=== PATIENT | male | born 1980 | race Caucasian/White ===

== ENCOUNTER 2021-06-02 21:15 | Emergency (ER) | payer MEDICAID ==
[~2021-06-02] VITALS: Ht 175.3 cm; Wt 77.3 kg
[2021-06-02] MEDS ORDERED: HYDROcodone/acetaminophen 5mg/325mg tablet PO ONE (23:35)
[2021-06-03 00:52] LABS: BASOPHILS # (AUTO) 0.1 X10'3 (0-0.2); BASOPHILS % (AUTO) 0.9 % (0-1); EOSINOPHILS % (AUTO) 0.3 % (0-6); HEMATOCRIT 49.9 % (42.0-52.0); LYMPHOCYTES # (AUTO) 1.8 X10'3 (1.1-4.8); LYMPHOCYTES % (AUTO) 18.6 % (21-51); MEAN CORPUSCULAR HGB CONC 34.1 g/dL (33.0-36.5); MEAN CORPUSCULAR VOLUME 93.7 FL (78-98); MEAN PLATELET VOLUME 8.3 FL (7.4-10.4); MONOCYTES # (AUTO) 0.9 X10'3 (0-0.9); MONOCYTES % (AUTO) 8.9 % (2-12); NEUTROPHILS % (AUTO) 71.3 % (42-75); PLATELET COUNT 192 X10'3 (140-440); RED BLOOD COUNT 5.32 X10'6 (4.70-6.10); WHITE BLOOD COUNT 9.9 X10'3 (4.5-11.0)
[2021-06-03 01:17] LABS: ALANINE AMINOTRANSFERASE 65 U/L (12-78); ALBUMIN 3.2 G/DL (3.4-5.0); ALBUMIN/GLOBULIN RATIO 0.9 (1.1-1.5); ALKALINE PHOSPHATASE 123 IU/L (46-116); AMYLASE 39 U/L (25-115); ANION GAP 12 (8-16); ASPARTATE AMINO TRANSFERASE 58 U/L (10-37); BILIRUBIN,DIRECT 0.7 MG/DL (0-0.3); BILIRUBIN,TOTAL 1.8 MG/DL (0.1-1.0); BLOOD UREA NITROGEN 19 MG/DL (7-18); BUN/CREATININE RATIO 14.6 (5.4-32.0); CALCIUM 10.4 MG/DL (8.5-10.1); CHLORIDE 102 MMOL/L (99-107); GLUCOSE 98 MG/DL (70-104); LIPASE 124 U/L (73-393); POTASSIUM 4.2 MMOL/L (3.5-5.1); SODIUM 141 MMOL/L (135-145); TOTAL CARBON DIOXIDE 27.1 MMOL/L (24-32); TOTAL PROTEIN 6.6 G/DL (6.4-8.2); eGFR 61 ML/MIN
[2021-06-03 03:29] VITALS: BP 158/122
[2021-06-03] MEDS ORDERED: HYDR-3965 PO (03:46)
[2021-06-03 04:26] LABS: CLARITY,URINE CLEAR (Clear); COLOR,URINE YELLOW (Yellow); GLUCOSE, URINE NEGATIVE (Neg); KETONES,URINE NEGATIVE (Neg); LEUKOCYTE ESTERASE ,URINE NEGATIVE (Neg); NITRITES, URINE NEGATIVE (Neg); OCCULT BLOOD,URINE NEGATIVE (Neg); PROTEIN,URINE NEGATIVE (Neg); UA COLLECTION TYPE VOIDED; UROBILINOGEN,URINE 0.2 E.U/dL (0.2-1.0)
[2021-06-04] MEDS ORDERED: NO HOME MEDS (13:43)
== END 2021-06-03 04:17 | disposition home or self-care (01) ==
LOC: ER 21:16
DX: R10.84 Generalized abdominal pain (principal)
CPT/HCPCS: 36415; 76700; 80048; 80076; 81003; 82150; 83690; 85025; 99284

== ENCOUNTER 2021-06-04 04:35 | Inpatient (IN) | payer MEDICAID ==
[~2021-06-04] VITALS: Ht 175.3 cm; Wt 77.3 kg
[~2021-06-04 04:35] MED LIST: HYDR-3965 PO
[2021-06-04] MEDS ORDERED: normal saline 1000ml 1,000 ML IV ONE ×2 (04:45→05:00)
[2021-06-04 05:11] LABS: BASOPHILS # (AUTO) 0.1 X10'3 (0-0.2); BASOPHILS % (AUTO) 0.8 % (0-1); EOSINOPHILS % (AUTO) 0.4 % (0-6); HEMATOCRIT 47.3 % (42.0-52.0); HEMOGLOBIN 16.2 g/dl (14.0-17.9); LYMPHOCYTES # (AUTO) 0.8 X10'3 (1.1-4.8); LYMPHOCYTES % (AUTO) 9.5 % (21-51); MEAN CORPUSCULAR HEMOGLOBIN 32.2 PG (27.0-31.0); MEAN CORPUSCULAR HGB CONC 34.3 g/dL (33.0-36.5); MEAN CORPUSCULAR VOLUME 93.8 FL (78-98); MEAN PLATELET VOLUME 8.5 FL (7.4-10.4); MONOCYTES # (AUTO) 1.2 X10'3 (0-0.9); MONOCYTES % (AUTO) 13.8 % (2-12); NEUTROPHILS # (AUTO) 6.4 X10'3 (1.8-7.7); NEUTROPHILS % (AUTO) 75.5 % (42-75); PLATELET COUNT 153 X10'3 (140-440); RED BLOOD COUNT 5.04 X10'6 (4.70-6.10); RED CELL DISTRIBUTION WIDTH 16.5 % (11.5-14.5); WHITE BLOOD COUNT 8.4 X10'3 (4.5-11.0)
[2021-06-04 05:22] LABS: ALANINE AMINOTRANSFERASE 65 U/L (12-78); ALBUMIN/GLOBULIN RATIO 0.9 (1.1-1.5); ALKALINE PHOSPHATASE 133 IU/L (46-116); ANION GAP 11 (8-16); ASPARTATE AMINO TRANSFERASE 66 U/L (10-37); BLOOD UREA NITROGEN 21 MG/DL (7-18); BUN/CREATININE RATIO 14.3 (5.4-32.0); CALCIUM 8.6 MG/DL (8.5-10.1); CHLORIDE 98 MMOL/L (99-107); CREATININE 1.47 MG/DL (0.60-1.10); GLUCOSE 119 MG/DL (70-104); SODIUM 133 MMOL/L (135-145); TOTAL CARBON DIOXIDE 23.6 MMOL/L (24-32); TOTAL PROTEIN 6.3 G/DL (6.4-8.2); eGFR 53 ML/MIN
[2021-06-04 05:25] LABS: BILIRUBIN,DIRECT 0.4 MG/DL (0-0.3); LIPASE 171 U/L (73-393); TROPONIN I 0.08 NG/ML (0.0-0.05)
[2021-06-04] MEDS ORDERED: diphenhydrAMINE 50 mg/ml inj IV ONE (07:20)
[2021-06-04] MEDS ORDERED: metoclopramide 5 mg/ml inj IV ONE (07:20)
[2021-06-04] MEDS ORDERED: glycopyrrolate 0.2mg/ml inj IV ONE (07:20)
--- NOTE | 2021-06-04 07:34 | NUR ---
pt to ct
[2021-06-04] MEDS ORDERED: ketorolac trometh. 30mg/ml inj. IV ONE (08:00)
[2021-06-04] MEDS ORDERED: ketorolac tromethamine 15mg/ml inj. IV ONE (08:05)
[2021-06-04] MEDS ORDERED: morphine 4 MG/ML inj SYRINge IV ONE (08:30)
[2021-06-04] MEDS ORDERED: metoprolol tartrate 1mg/ml inj IV ONE (08:50)
[2021-06-04] MEDS ORDERED: aspirin 325mg tablet PO ONE (08:50)
[2021-06-04] MEDS ORDERED: LORazepam 2 mg/ml vial IV ONE ×3 (09:35→12:15)
[2021-06-04] MEDS ORDERED: iohexol 350MG/ML 100ml bottle IV ONE (09:54)
[2021-06-04 10:00] LABS: D-DIMER 1.06 MG/L FEU (0-0.50)
--- NOTE | 2021-06-04 10:01 | NUR ---
PT SHOWS S/S OF ANXIETY. PT PULLING OFF LEADS AND TRYING TO CLIMB OUT OF BED. PT STATING "I NEED TO GET SOME AIR, I NEED TO GO OUTSIDE". PT WAS TREATED W/ 2 MG ATIVAN, YET PT CONTINUES TO SHOW INCREASED AGITATION. SPO2 93% RA.
[2021-06-04] MEDS ORDERED: enoxaparin 100mg/ml syringe SUBCUT ONE (10:50)
--- NOTE | 2021-06-04 11:00 | NUR ---
TO CT AT THIS TIME VIA [facility].
[2021-06-04] MEDS ORDERED: haloperidol lactate 5mg/ml inj IM ONE (11:35)
[2021-06-04] MEDS ORDERED: ringers solution, lactated 1000ml IV soln IV ONE (12:25)
--- NOTE | 2021-06-04 13:04 | NUR ---
pt exhibiting 5-10 seconds of apnea then RR resume 15-17 bpm
[2021-06-04] MEDS ORDERED: morphine 2 MG/ML inj. syringe IV PRN ×2 (13:10)
[2021-06-04] MEDS ORDERED: nitroGLYCERIN 0.4mg SUBLingual tab SL PRN ×2 (13:10)
[2021-06-04] MEDS ORDERED: ondansetron/PF 4mg/2ml inj IV PRN (13:10)
[2021-06-04] MEDS ORDERED: regadenoson 0.4mg/5ml syringe IV ONE (13:10)
[2021-06-04] MEDS ORDERED: aminophylline 250mg/10ml inj. IV PRN (13:10)
[2021-06-04] MEDS ORDERED: potassium Cl 40MEQ/1/2NS 520ml 520 ML IV PRN ×2 (13:10)
[2021-06-04] MEDS ORDERED: magnesium Cl slow-release 64mg tablet PO PRN (13:10)
[2021-06-04] MEDS ORDERED: HYDROcodone/acetaminophen 10/325mg tab PO PRN (13:10)
[2021-06-04] MEDS ORDERED: HYDROcodone/acetaminophen 5mg/325mg tablet PO PRN (13:10)
[2021-06-04] MEDS ORDERED: PERFLUTREN PROTEIN-A MICROSPHR (Optison) 0.22 MG/ML 3ML VIAL IV ONE (13:10)
[2021-06-04] MEDS ORDERED: NORMAL SALINE IV PRN (13:10)
[2021-06-04] MEDS ORDERED: LORazepam 0.5 MG tablet PO PRN (13:10)
[2021-06-04] MEDS ORDERED: magnesium hydroxide 30ml (MOM) UD suspension PO PRN (13:10)
[2021-06-04] MEDS ORDERED: mag hydrox/Alum hydrox/simeth 30ml oral suspension PO PRN (13:10)
[2021-06-04] MEDS ORDERED: magnesium 2GM in 50ml NS 50 ML IV PRN (13:10)
[2021-06-04] MEDS ORDERED: SINCALIDE IV PRN (13:10)
[2021-06-04] MEDS ORDERED: metoprolol tartrate 1mg/ml inj IV PRN (13:10)
[2021-06-04] MEDS ORDERED: potassium Cl 20 mEq SR tablet PO PRN ×2 (13:10)
[2021-06-04] MEDS ORDERED: magnesium 4gm in 100ml NS 100 ML IV PRN (13:10)
[2021-06-04] MEDS ORDERED: acetaminophen 325mg tablet PO PRN ×2 (13:10)
[2021-06-04] MEDS ORDERED: bisacodyl 10mg suppository rectal RC PRN (13:10)
[2021-06-04] MEDS ORDERED: NO HOME MEDS (13:43)
--- NOTE | 2021-06-04 14:00 | NUR ---
DR. BURNS AT BEDSIDE AWARE THAT PATIENT HAS PERIODS OF APNEA LASTING APPROX 30-60 SECONDS SPO2 93-98% ON ROOM AIR.
[2021-06-04 14:22] LABS: URINE AMPHETAMINE SCREEN POSITIVE (Neg); URINE BARBITUATE SCREEN NEGATIVE (Neg); URINE BENZODIAZEPINES SCREEN NEGATIVE (Neg); URINE CANNABINOID SCREEN NEGATIVE (Neg); URINE COCAINE SCREEN NEGATIVE (Neg); URINE METHADONE SCREEN NEGATIVE (Neg); URINE OPIATE SCREEN POSITIVE (Neg); URINE PHENCYCLIDINE SCREEN NEGATIVE (Neg)
[2021-06-04] MEDS: normal saline 1000ml 1,000 ML IV SCH ×2 (16:28→20:00)
[2021-06-04] MEDS: docusate sod 100mg capsule PO SCH (20:00)
[2021-06-04] MEDS: heparin, porcine 5000 units/ml vial SQ SCH (20:00)
[2021-06-04] MEDS: K and/or MAG REPLACEMENT MC SCH (20:37)
[2021-06-04] MEDS ORDERED: temazepam 15mg capsule PO PRN (21:00)
--- NOTE | 2021-06-04 21:53 | NUR ---
PT KEEPS REFUSING TO KEEP VS MONITOR ON; PT GETS AGGRESSIVE IF YOU TRY TO PROVIDE PT CARE OR GIVE MEDS; PT STATES "LEAVE ME ALONE AND LET ME REST OR YOU WILL REGRET IT"
[2021-06-05] MEDS: K and/or MAG REPLACEMENT MC SCH ×2 (08:00→20:00)
[2021-06-05] MEDS: docusate sod 100mg capsule PO SCH ×2 (08:30→20:00)
[2021-06-05] MEDS ORDERED: aspirin 81mg tab.chew PO SCH (08:30)
[2021-06-05] MEDS: heparin, porcine 5000 units/ml vial SQ SCH ×2 (09:17→20:52)
[2021-06-05] MEDS: normal saline 1000ml 1,000 ML IV SCH ×2 (09:47→20:59)
[2021-06-05 10:09] LABS: BASOPHILS # (AUTO) 0.1 X10'3 (0-0.2); BASOPHILS % (AUTO) 0.9 % (0-1); EOSINOPHILS % (AUTO) 0.1 % (0-6); HEMATOCRIT 54.3 % (42.0-52.0); LYMPHOCYTES # (AUTO) 2.2 X10'3 (1.1-4.8); LYMPHOCYTES % (AUTO) 27.7 % (21-51); MEAN CORPUSCULAR HEMOGLOBIN 32.1 PG (27.0-31.0); MEAN CORPUSCULAR HGB CONC 33.8 g/dL (33.0-36.5); MONOCYTES # (AUTO) 1.4 X10'3 (0-0.9); MONOCYTES % (AUTO) 16.8 % (2-12); NEUTROPHILS # (AUTO) 4.4 X10'3 (1.8-7.7); NEUTROPHILS % (AUTO) 54.5 % (42-75); PLATELET COUNT 181 X10'3 (140-440); RED BLOOD COUNT 5.71 X10'6 (4.70-6.10); RED CELL DISTRIBUTION WIDTH 17.1 % (11.5-14.5); WHITE BLOOD COUNT 8.1 X10'3 (4.5-11.0)
[2021-06-05 10:14] LABS: HEMOGLOBIN 18.3 g/dl (14.0-17.9)
[2021-06-05 10:34] LABS: ALANINE AMINOTRANSFERASE 79 U/L (12-78); ALBUMIN 2.6 G/DL (3.4-5.0); ALBUMIN/GLOBULIN RATIO 0.8 (1.1-1.5); ALKALINE PHOSPHATASE 101 IU/L (46-116); ANION GAP 12 (8-16); ASPARTATE AMINO TRANSFERASE 95 U/L (10-37); BILIRUBIN,TOTAL 1.3 MG/DL (0.1-1.0); BLOOD UREA NITROGEN 23 MG/DL (7-18); BUN/CREATININE RATIO 16.7 (5.4-32.0); CALCIUM 8.2 MG/DL (8.5-10.1); CHLORIDE 102 MMOL/L (99-107); CHOL/HDL RATIO 4.3 (0.00-4.99); CHOLESTEROL 124 MG/DL (0-200); CREATININE 1.38 MG/DL (0.60-1.10); GLUCOSE 87 MG/DL (70-104); HDL CHOLESTEROL 29 MG/DL (35-60); LDL CHOLESTEROL 77 MG/DL (50-100); POTASSIUM 4.6 MMOL/L (3.5-5.1); SODIUM 139 MMOL/L (135-145); TOTAL CARBON DIOXIDE 24.6 MMOL/L (24-32); TOTAL PROTEIN 5.8 G/DL (6.4-8.2); TRIGLYCERIDES 94 MG/DL (20-135); eGFR 57 ML/MIN
[2021-06-05 13:58] LABS: ANISOCYTOSIS 1+; PLATELET ESTIMATE NORMAL; TOTAL CELLS COUNTED 100
[2021-06-05 14:00] LABS: ROULEAUX 1+; SMUDGE CELLS 1+
[2021-06-05] MEDS ORDERED: metoprolol succinate 25mg (24-HOUR) SR. Tablet PO SCH (14:55)
[2021-06-05] MEDS ORDERED: losartan 25mg tablet PO SCH (14:55)
--- NOTE | 2021-06-05 16:22 | NUR ---
Pt arrived to the floor from ER at approximately 0725 from ER via hospital bed with 2 assistants. Pt asleep in bed. Pt alert x 2. Pt is a 41 yr old male. Small abrasions noted to pt forehead, all four extremities, and torso. Pt has own teeth but poor oral care. Redness noted to patient's left and right knuckles. Pt denies pain at this time. 18 gauge IV to right upper arm with 0.9% NS running. IV site is clean and dry. Pt has to be reminded why he is here due to him sleeping and waking up confused. Critical lab Hgb 18.3 telephoned to nurse by lab at 1020 am and MD notified via page. MD visit with pt shortly after page. requested that pt stay NPO after stress test and to start new meds as ordered. ASHWIN Collado visit patient this afternoon and new orders for strict I and O's and pt can resume heart healthy diet due to declining stress test. This nurse educated patient o new meds, the low EJ fraction of heart. Pt verbalized understanding. Pt currently resting with eyes closed. Pt will continue to be monitored.
[2021-06-05 18:30] VITALS: BP 139/107
--- NOTE | 2021-06-05 18:30 | NUR ---
Assumed care of pt at this time report from day shift.
[2021-06-05 22:00] VITALS: BP 121/88
[2021-06-06 02:00] VITALS: BP 133/97
[2021-06-06 06:10] VITALS: BP 133/103
--- NOTE | 2021-06-06 06:30 | NUR ---
Patient in room [facility]TH[facility] 4021. I have received report from Zunilda NIX and had the opportunity to ask questions and assume patient care.
--- NOTE | 2021-06-06 06:42 | NUR ---
Report to Maris NIX.
[2021-06-06 08:58] LABS: BASOPHILS # (AUTO) 0.1 X10'3 (0-0.2); BASOPHILS % (AUTO) 1.2 % (0-1); EOSINOPHILS % (AUTO) 0.2 % (0-6); HEMATOCRIT 55.8 % (42.0-52.0); LYMPHOCYTES # (AUTO) 1.8 X10'3 (1.1-4.8); LYMPHOCYTES % (AUTO) 22.4 % (21-51); MEAN CORPUSCULAR HEMOGLOBIN 32.1 PG (27.0-31.0); MEAN CORPUSCULAR HGB CONC 33.4 g/dL (33.0-36.5); MEAN CORPUSCULAR VOLUME 96.2 FL (78-98); MEAN PLATELET VOLUME 8.6 FL (7.4-10.4); MONOCYTES % (AUTO) 11.8 % (2-12); NEUTROPHILS # (AUTO) 5.2 X10'3 (1.8-7.7); NEUTROPHILS % (AUTO) 64.4 % (42-75); PLATELET COUNT 181 X10'3 (140-440); RED BLOOD COUNT 5.81 X10'6 (4.70-6.10); RED CELL DISTRIBUTION WIDTH 17.3 % (11.5-14.5); WHITE BLOOD COUNT 8.1 X10'3 (4.5-11.0)
[2021-06-06 09:13] LABS: HEMOGLOBIN 18.6 g/dl (14.0-17.9)
--- NOTE | 2021-06-06 09:25 | NUR ---
patient educated about risks and to follow up with an MD prior to leaving.
--- NOTE | 2021-06-06 09:25 | NUR ---
Patient left ama at this time, Dr. sales notified. Iv and tele removed
[2021-06-06 09:35] LABS: ALANINE AMINOTRANSFERASE 83 U/L (12-78); ALBUMIN 2.7 G/DL (3.4-5.0); ALBUMIN/GLOBULIN RATIO 0.8 (1.1-1.5); ALKALINE PHOSPHATASE 103 IU/L (46-116); ANION GAP 11 (8-16); ASPARTATE AMINO TRANSFERASE 82 U/L (10-37); BILIRUBIN,TOTAL 1.2 MG/DL (0.1-1.0); BLOOD UREA NITROGEN 25 MG/DL (7-18); BUN/CREATININE RATIO 19.4 (5.4-32.0); CALCIUM 8.1 MG/DL (8.5-10.1); CHLORIDE 104 MMOL/L (99-107); CREATININE 1.29 MG/DL (0.60-1.10); GLUCOSE 107 MG/DL (70-104); MAGNESIUM 2.1 MG/DL (1.5-2.4); POTASSIUM 4.5 MMOL/L (3.5-5.1); SODIUM 137 MMOL/L (135-145); TOTAL CARBON DIOXIDE 21.9 MMOL/L (24-32); eGFR 62 ML/MIN
[2021-06-06 12:57] LABS: HBSAG SCREEN Negative (Negative); HEP A AB, IGM Negative (Negative); HEPATITIS C ANTIBODY 0.1 s/co ratio (0.0-0.9)
== END 2021-06-06 09:30 | disposition left against medical advice (07) | DRG 137 ==
LOC: ER 04:36 → ED HOLD 13:19 → EDBEDREQ 06-05 06:11 → EDBEDREQDT 06-05 06:11 → EDBEDREQTM 06-05 06:11 → ORTHO 4S 06-05 07:30
PROVIDERS: ADMIT Family Medicine; ATTEND Family Medicine
PROC: B32T1ZZ Computerized Tomography (CT Scan) of Left Pulmonary Artery using Low Osmolar Contrast (ICD-10-PCS; principal; 2021-06-04)
PROC: B3201ZZ Computerized Tomography (CT Scan) of Thoracic Aorta using Low Osmolar Contrast (ICD-10-PCS; 2021-06-04)
PROC: B32S1ZZ Computerized Tomography (CT Scan) of Right Pulmonary Artery using Low Osmolar Contrast (ICD-10-PCS; 2021-06-04)
DX: U07.1 COVID-19 (principal); G92.9 Unspecified toxic encephalopathy; N17.9 Acute kidney failure, unspecified; E87.1 Hypo-osmolality and hyponatremia; E87.2 Acidosis; I20.9 Angina pectoris, unspecified; I50.20 Unspecified systolic (congestive) heart failure; I42.7 Cardiomyopathy due to drug and external agent; T43.625A Adverse effect of amphetamines, initial encounter; F40.240 Claustrophobia; K82.8 Other specified diseases of gallbladder; Z53.29 Procedure and treatment not carried out because of patient's decision for other reasons; F15.10 Other stimulant abuse, uncomplicated; F17.210 Nicotine dependence, cigarettes, uncomplicated; R74.01 Elevation of levels of liver transaminase levels; Z88.5 Allergy status to narcotic agent; Z91.013 Allergy to seafood; Y92.89 Other specified places as the place of occurrence of the external cause; Z71.51 Drug abuse counseling and surveillance of drug abuser; Z71.6 Tobacco abuse counseling
CPT/HCPCS: 36415; 71045; 71275; 74176; 80048; 80053; 80061; 80074; 80076; 80305; 83605; 83690; 83735; 83880; 84145; 84484; 85007; 85025; 85379; 87635; 93005; 93306; 96361; 96372; 96374; 96375; 96376; 99285; C9803; G0378; J1200; J1630; J1644; J1650; J1885; J2060; J2270; J2765; J3490; J7030; J7120; Q9967

== ENCOUNTER 2021-06-06 13:17 | Emergency (ER) | payer MEDICAID ==
[~2021-06-06 13:17] MED LIST changes: -HYDR-3965 PO; +NO HOME MEDS
[2021-06-06 14:07] VITALS: BP 140/90
== END 2021-06-06 14:12 | disposition home or self-care (01) ==
LOC: ER 13:17
DX: U07.1 COVID-19 (principal); G89.29 Other chronic pain; R10.9 Unspecified abdominal pain; F15.10 Other stimulant abuse, uncomplicated; I25.2 Old myocardial infarction; Z79.899 Other long term (current) drug therapy; Z91.013 Allergy to seafood; Z90.49 Acquired absence of other specified parts of digestive tract
CPT/HCPCS: 99283